=== PATIENT | female | born 1985 | race Caucasian/White ===

== ENCOUNTER 2025-02-24 11:52 | Emergency (ER) | payer OTHER, SELFPAY ==
[2025-02-24] VITALS (24 sets, daily range): BP systolic 155–219; BP diastolic 85–121; PULSE 49–62; RESP 6–19; TEMP 36.3–36.5; O2SAT 98–100
--- NOTE | ~2025-02-24 | CT_ITS ---
EXAMINATION: CT brain wo con DATE: 02/24/2025 12:14 INDICATION: Hypertension with headache TECHNIQUE: Computed tomography (CT) of the head was performed without intravenous contrast. Sagittal and coronal reconstructions were performed. The mA was adjusted according to patient size. Iterative reconstruction technique was employed. The dose-length product was 681.00 mGy-cm. COMPARISON: None FINDINGS: No acute intracranial hemorrhage, acute infarction or abnormal extra axial fluid collection. Ventricles are normal and symmetric. There is asymmetric increased fluid in the sella with the pituitary deviated towards the left which suggests a possible cystic intrasellar lesion. No masses identified.. Mild mucosal thickening the right maxillary sinus. The orbits, paranasal sinuses and mastoid air cells are normal. IMPRESSION: 1. No acute intracranial process. 2. Suggestion of a possible cystic lesion in the right side of the sella with displacement of a catheter into the left side of the sella. Consider further evaluation with pre and postcontrast pituitary MRI. Reviewed, dictated and finalized at location A. IMPRESSION: 1. No acute intracranial process. 2. Suggestion of a possible cystic lesion in the right side of the sella with d isplacement of a catheter into the left side of the sella. Consider further rhea luation with pre and postcontrast pituitary MRI.
--- NOTE | 2025-02-24 11:54 | ECG_ITS ---
Test Date: 2025-02-24 12:18:45 Measurements Intervals Bypro Rate: 51 P: 53 LA: 177 QRS: 14 QRSD: 95 T: 137 QT: 463 QTc: 428 Interpretive Statements SINUS BRADYCARDIA ST DEVIATION AND MODERATE T-WAVE ABNORMALITY, CONSIDER LATERAL ISCHEMIA [-0.1+ mV T-WAVE IN I/aVL/V5/V6] ABNORMAL ECG No previous ECG available for comparison Electronically Signed On 02-24-2025 12:38:11 CDT by Jono Dozier M.D.
--- OUTSIDE RECORDS SUMMARY | 2025-02-24 12:03 | XMS_ITS | Clinical Summary ---
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 10 Tab 12/24/2016 Active Phentermine HCl (ADIPEX-P) 37.5 MG Capsule Take by mouth. Active methylPREDNISol one (MEDROL DOSPACK) 4 MG Tablet Therapy Pack See product package insert for dosing schedule 21 Tab 01/12/2017 Active ibuprofen (MOTRIN) 600 MG Tablet Take 1 Tab by mouth every 6 hours as needed for Pain. 20 Tab 01/12/2017 Active lisinopril (PRINIVIL, ZESTRIL) 20 MG Tablet Take 20 mg by mouth daily. Active Social History Tobacco Use Types Packs/Day Years Used Date Smoking Tobacco: Every Day Cigarettes Smokeless Tobacco: Never Tobacco Cessation:Ready to Q uit: Not Asked; Counseling Given: Not Answered Alcohol Use Standard Drinks/Week Comments Yes 0 (1 standard drink = 0.6 oz pur e alcohol) seldom Comments No Sex and Gender Information Value Date Recorded Sex Assigned at Not on file Legal Sex Female 10:55 PM CDT Gender Identity Not on file Sexual Orientation Not on file Last Filed Vital Signs Vital Sign Reading Time Taken Comments Blood Pressure 184/106 06/04/2022 2:00 PM BACK GRINDER Pulse 84 06/04/2022 2:03 PM BACK GRINDER Temperature 37.4 C (99.4 F) 06/04/2022 11:30 AM BACK GRINDER Respiratory Rate 20 06/04/2022 11:30 AM BACK GRINDER Oxygen Saturation 98% 06/04/2022 2:03 PM BACK GRINDER Inhaled Oxygen Concentration - - Weight 117.9 kg (260 lb) 06/04/2022 11:30 AM BACK GRINDER Height 177.8 cm (5' 10) 06/04/2022 11:30 AM BACK GRINDER Body Mass Index 37.31 06/04/2022 11:30 AM BACK GRINDER Plan of Treatment Health Maintenance Due Date Last Done Comments Hepatitis C Virus (HCV) Screening 1987 TdaP Immunization 1987 Pap Smear 2008 Human Papillomavirus (HPV) Immunization (1 - 3-dose SCDM series) 2014 Cervical Cancer Screening (CCS) 2017 HPV/Cotest 2017 Influenza Immunization (#1) 2025 04/13/2016 SARS-COV-2 Immunization ( season) 2025 11/29/2020, 11/08/2020 Respiratory Syncytial Virus (RSV) Immunization (Adult) (1 - 1-dose 75+ series) 2062 DTaP/Tdap/Td Immunization Discontinued 1991, 12/25/1988, 1987, Additional history exists Hepatitis B Immunization Completed 997, 11/04/1996, 09/30/1996 Meningococcal Immunization (ACWY) Aged Out No longer eligible based on patient's age to complete this topic Pneumococcal Immunization Combined Aged Out No longer eligible based on patient's age to complete this topic Rotavirus Immunization Aged Out No lo nger eligible based on patient's age to complete this topic 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
--- OUTSIDE RECORDS SUMMARY | 2025-02-24 12:03 | XMS_ITS | Clinical Summary ---
Author Organization [facility] Address [address] [place] [address] Care Team Providers Care Body Care Manager Name Role Phone No, Physician Primary Care Provider [phone] Allergies Active Allergy Reactions Criticality Noted Date Comments Fluoxetine Hives Medium 01/19/2016 Medications ondansetron (ZOFRAN) 4 mg tablet Take 1 tablet (4 mg total) by mouth every 6 (six) hours 12 tablet 11/15/19 22 Active loperamide (IMODIUM) 2 mg capsule Take 1 capsule (2 mg total) by mouth 4 (four) times a day as needed for diarrhea 12 capsule 11/15/19 22 Active ibuprofen (ADVIL,MOTRIN ) 800 mg tablet Take 1 tablet (800 mg total) by mouth 3 (three) times a day 21 tablet 12/05/19 22 Active predniSONE (DELTASONE) 10 mg tablet Take 1 tablet (10 mg) by mouth as directed 3 p.o. daily for 5 days then 2 p.o. daily for 5 days then 1 p.o. daily for 5 days. Collaborating physician Jaspreet Sharma MD 30 tablet 07/18/19 23 Active traMADoL (ULTRAM) 50 mg tablet Take 1 tablet (50 mg total) by mouth every 6 (six) hours as needed for pain for up to 15 doses P.r.n. pain not relieved by prednisone alone. Take with food. Collaborating physician Jaspreet Sharma MD 15 tablet 07/18/19 23 Active oxyCODONE (ROXICODONE) 10 mg tabletIndicat ions:Pain Take 1 tablet (10 mg total) by mouth every 4 (four) hours as needed for pain 20 tablet 10/14/19 25 Active hydrALAZINE (APRESOLINE) 50 mg tabletIndicat ions:hyperten obed Take 1 tablet (50 mg total) by mouth 3 (three) times a day 30 tablet 10/14/19 25 026 Active amLODIPine (NORVASC) 10 mg tabletIndicat ions:douglas clay Take 1 tablet (10 mg total) by mouth daily 60 tablet 12/01/19 25 026 Active irbesartan (AVAPRO) 75 mg tablet Take 2 tablets (150 mg total) by mouth nightly 60 tablet 12/01/19 25 026 Active atenoloL (TENORMIN) 50 mg tablet Take 1 tablet (50 mg total) by mouth daily 60 tablet 01/21/20 25 026 Active hydroCHLOROth iazide (HYDRODIURIL) 25 mg tablet Take 12.5 mg by mouth daily. 0 05/02/20 17 022 Discontinued metoprolol XL (TOPROL-XL) 50 mg 24 hr tablet Take 50 mg by mouth daily. 2 05/02/20 17 022 Discontinued lisinopril-hy droCHLOROthia zide (ZESTORETIC) 20-25 mg per tabletIndicat ions:douglas clay Take 1 tablet by mouth daily 30 tablet 10/04/19 21 022 Discontinued Active Problems Problem Noted Date Diagnosed Date Gouty arthritis of right foot 07/18/2022 Disorder of gallbladder 05/07/2012 Overview (09/12/2016): Gallbladder disease Nontraumatic retroperitoneal hematoma 03/12/2012 Encounters Date Type Department Care Team Description 01/19/2025 11:25 PM CDT - 01/20/2025 2:04 AM CDT Emergency [facility] Emergency Department [address] [place] [address] Killian Baird MD Uncontrolled hypertension (Primary Dx) Discharge Disposition: Discharge to home or self care 11/30/2024 11:36 AM CDT - 11/30/2024 5:58 PM CDT Emergency [facility] Emergency Department [address] [place] [address] Christian Lofton MD Burnside, David W., MD Hypertensive urgency (Primary Dx) Discharge Disposition: Discharge to home or self care from Last 3 Months Surgical History Surgery Date Site/Laterality Comments LAPAROSCOPIC CHOLECYSTECTOMY 2012 laparoscopic cholecystectomy Medical History Medical History Date Comments Hypertension Hypertension Hx Other Medical Hematomas on madan th kidneys Morbid obesity (HCC) Family History Medical History Relation Name Comments Cancer Other 1 Family history of Cancer; Heart disease Other 2 Family history of Heart disease; Relation Name Status Comments Other 1 Other 2 Social History Tobacco Use Types Packs/Day Years Used Date Smoking Tobacco: Every Day Cigarettes Smokeless Tobacco: Never Alcohol Use Standard Drinks/Week Comments No 0 (1 standard drink = 0.6 oz pur e alcohol) Personal Safety Answer Date Recorded Have you ever been in or are you currently in a harmful physical or emotional relationship or is someone making you feel afraid or unsafe? Denies 01/19/2025 Comments No Sex and Gender Information Value Date Recorded Sex Assigned at Not on file Legal Sex Female 2:41 AM [employer] Gender Identity Not on file Sexual Orientation Not on file Obstetrics History Last Filed Vital Signs Vital Sign Reading Time Taken Comments Blood Pressure 178/88 01/20/2025 1:45 AM CDT Pulse 84 01/20/2025 2:00 AM CDT Temperature 36.9 C (98.5 F) 01/19/2025 9:25 PM CDT Respiratory Rate 16 01/20/2025 2:00 AM CDT Oxygen Saturation 97% 01/20/2025 2:00 AM CDT Inhaled Oxygen Concentration - - Weight 85.7 kg (189 lb) 01/19/2025 9:25 PM CDT Height 177.8 cm (5' 10) 10/13/2024 7:26 AM CDT Body Mass Index 27.12 10/13/2024 7:26 AM CDT Plan of Treatment Health Maintenance Due Date Last Done Comments Cervical Cancer Screening 1987 Depression Screening 1987 Hepatitis C Screening 1987 DTaP/Tdap/Td Vaccine (6 - Tdap) 1998 08/18/1991, 12/25/1988, 1987, Additional history exists Varicella Vaccines (1 of 2 - 13+ 2-dose series) 2000 Regular Well Visit/Exam 18-64 2005 Pneumococcal vaccine <65 (1 of 2 - PCV) 2006 HPV Vaccines (1 - 3-dose SCD M series) 2014 Influenza Vaccine (#1) 2025 04/13/2016 Hepatitis B Screening Completed 03/10/1997 , 11/04/1996, 09/30/1996 Procedures Procedure Name Priority Date/Time Associated Diagnosis Comments TROPONIN T HIGH-SENSITIVITY 4-HR Timed 01/20/2025 1:14 AM CDT TROPONIN T HIGH-SENSITIVITY 2-HOUR Timed 01/19/2025 11:39 PM CDT THYROID FUNCTION CASCADE Routine 01/19/2025 11:35 PM CDT XR CHEST PA LATERAL 2 VIEWS ED 01/19/2025 10:14 PM CDT ECG 12-LEAD STAT 01/19/2025 9:32 PM CDT EGFR STAT 01/19/2025 9:29 PM CDT DIFFERENTIAL AUTO STAT 01/19/2025 9:2 9 PM CDT PRO B-TYPE NATRIURETIC PEPTIDE STAT 01/19/2025 9:29 PM CDT TROPONIN T HIGH-SENSITIVITY SERIES (BASELINE, 2HR, 4HR, 6HR) STAT 01/19/2025 9:29 PM CDT CBC WITH AUTO DIFFERENTIAL STAT 01/19/2025 9:29 PM CDT COMPREHENSIVE METABOLIC PANEL STAT 01/19/2025 9:[address] HEAD WO CONTRAST ED 11/30/2024 5 :19 PM CDT TROPONIN T HIGH-SENSITIVITY 4-HR Timed 11/30/2024 4:41 PM CDT ECG 12-LEAD Routine 11/30/2024 3:22 PM CDT TROPONIN T HIGH-SENSITIVITY 2-HOUR Timed 11/30/2024 1:22 PM CDT URINALYSIS AND REFLEX TO MICROSCOPIC AND CULTURE STAT 11/30/2024 1:22 PM CDT ECG 12-LEAD Routine 11/30/2024 11:50 AM CDT EGFR STAT 11/30/2024 11:50 AM CDT DIFFERENTIAL AUTO STAT 11/30/2024 11: 50 AM CDT HCG, BLOOD, QUANTITATIVE STAT 11/30/2024 11:50 AM CDT TROPONIN T HIGH-SENSITIVITY SERIES (BASELINE, 2HR, 4HR, 6HR) Routine 11/30/2024 11:50 AM CDT MAGNESIUM Routine 11/30/2024 11:50 AM CDT COMPREHENSIVE METABOLIC PANEL STAT 11/30/2024 11:50 AM CDT CBC WITH AUTO DIFFERENTIAL STAT 11/30/2024 11:50 AM CDT from Last 3 Months Results * (ABNORMAL) Troponin T high-sensitivity 4-hour (01/20/2025 1:14 AM CDT) Trop T hs 21(H) <=14 ng/L [facility] ([place]) Comment: Interpretive Data For further hscTnT resources including the diagnostic algorithm and an aid in interpretation, copy and paste this link: https://nrl.testcatalog.org/show/hsTrop Current Interpretive Data last revised 2020. Trop T hs delta 3 ng/L [facility] ([facility]) Trop T hs interp Insignificant [facility] ([place]) Blood 01/20/2025 1:14 AM CDT 01/20/2025 1:20 AM CDT us Jaspreet Sharma MD LAB BLOOD ORDERABLES Final Result [facility] ([place]) 1 [facility] Department [place] [address] * (ABNORMAL) Troponin T high-sensitivity 2-hour (01/19/2025 11:39 PM CDT) Trop T hs 19(H) <=14 ng/L [facility] ([place]) Comment: Interpretive Data For further hscTnT resources including the diagnostic algorithm and an aid in interpretation, copy and paste this link: https://nrl.testcatalog.org/show/hsTrop Current Interpretive Data last revised 2020. Trop T hs delta 1 ng/L [facility] ([facility]) Trop T hs interp Insignificant [facility] ([place]) Blood 01/19/2025 11:3 9 PM CDT 01/19/2025 11:45 PM CDT us Jaspreet Sharma MD LAB BLOOD ORDERABLES Final Result Performing Organization Address [facility]/ZIP Co de Phone Number [facility] ([place]) 1 [facility] Department [place] [address] * Thyroid Function Assumption (01/19/2025 11:35 PM CDT) TSH 1.71 0.30 - 4.20 mcIUnit/mL [facility] ([place]) Blood 01/19/2025 11:3 5 PM CDT 01/20/2025 12:23 AM CDT us Killian Baird MD LAB BLOOD ORDERABLES Final Res ult [facility] ([place]) 1 [facility] [place] [address] * XR Chest PA Lateral 2 Views (If patient hemodynamically stable and ambulatory) (01/19/2025 10:14 PMCDT) Anatomical Region Laterality Modality Body, Chest N/A Computed Radiogr aphy 01/19/2025 10:1 6 PM CDT Narrative 01/19/2025 10:20 PM CDT EXAM DESCRIPTION: XR CHEST PA LATERAL 2 VIEWS REASON FOR STUDY: Shortness of breath Patient complained of blood pressure readings in 200's at home. Denies chest pain and sob Smoker TECHNIQUE: 2 radiographic view(s) of the chest. COMPARISON: 04/02/2017 FINDINGS: LUNGS: The lungs are clear. No focal pulmonary parenchymal consolidation, pleural effusion, or pneumothorax. HEART/MEDIASTINUM: Cardiac silhouette normal in size. Mediastinal and hilar contours appear normal. LINES/TUBES: None. BONES: No acute osseous abnormality. IMPRESSION: No acute cardiopulmonary abnormality. THIS IS AN ELECTRONICALLY VERIFIED FINAL REPORT 01/19/2025 10:20 PM - Electronically signed by Shereen Shipman M.D. AT: AT Report ID: [id number] Reading Location: [id number] Procedure Note Shereen Shipman MD - 01/19/2025 EXAM DESCRIPTION: XR CHEST PA LATERAL 2 VIEWS REASON FOR STUDY: Shortness of breath Patient complained of blood pressure readings in 200's at home. Denieschest pain and sob Smoker TECHNIQUE: 2 radiographic view(s) of the chest. COMPARISON: 04/02/2017 FINDINGS: LUNGS: The lungs are clear. No focal pulmonary parenchymalconsolidation, pleural effusion, or pneumothorax. HEART/MEDIASTINUM: Cardiac silhouette normal in size. Mediastinal andhilar contours appear normal. LINES/TUBES: None. BONES: No acute osseous abnormality. IMPRESSION: No acute cardiopulmonary abnormality. THIS IS AN ELECTRONICALLY VERIFIED FINAL REPORT 01/19/2025 10:20 PM - Electronically signed by Shereen Shipman M.D. AT: AT Report ID: [id number] Reading Location: [id number] Killian Baird MD IMG XR PROCEDURES Final Result * ECG 12 lead (01/19/2025 9:32 PM CDT) 01/19/2025 9:32 PM CDT Narrative [facility] - 01/20/2025 1:53 PM CDT Vent Rate: 111 bpm RR Interval: 538 msec OK Interval: 120 msec QRS Duration: 94 msec QT Interval: 333 msec QTC Interval: 399 msec P-R-T Ararat: 62 - 31 - 127 degrees IMPRESSION: SINUS TACHYCARDIA WITH OCCASIONAL VENTRICULAR PREMATURE COMPLEXES ST DEVIATION AND MODERATE T-WAVE ABNORMALITY, CONSIDER LATERAL ISCHEMIA [-0.1+ mV T WAVE IN I/aVL/V5/V6] ABNORMAL ECG Compared to prior EKG, heart rate has increased PVCs are new Electronically Signed By: Lencho Jade MD Killian Baird MD ECG ORDERABLES Final Result Performing Organization Address [facility]/ZIP Co de Phone Number [facility] * (ABNORMAL) Troponin T high-sensitivity series (baseline, 2hr, 4hr, 6hr) (01/19/2025 9:29 PM CDT) Trop T hs 18(H) <=14 ng/L [facility] ([place]) Comment: Interpretive Data For further hscTnT resources including the diagnostic algorithm and an aid in interpretation, copy and paste this link: https://nrl.testcatalog.org/show/hsTrop Current Interpretive Data last revised 2020. Blood 01/19/2025 9:29 PM CDT 01/19/2025 9:37 PM CDT Killian Baird MD LAB BLOOD ORDERABLES Final Res ult [facility] ([place]) 1 [facility] Department [place] [address] * (ABNORMAL) eGFR (01/19/2025 9:29 PM CDT) eGFR 56(L) >=60 mL/min/1. 73 m2 Comment: Interpretive Data Reference Interval Normal >/= 90 mL/min/1.73m2 Mildly decreased* 60 - 89 mL/min/1.73m2 Mildly to moderately decreased 45 - 59 mL/min/1.73m2 Moderately to severely decreased 30 - 44 mL/min/1.73m2 Severely decreased 15 - 29 mL/min/1.73m2 Kidney Failure < 15 mL/min/1.73m2 *Relative to young adult level Estimated glomerular filtration rate is determined by the 2020 CKD-EPI equation recommended by the National Kidney Foundation (A Unifying Approach to GFR Estimation: Recommendations of the NKF-ASK Task Force on Reassessing the Inclusion of Race in Diagnosing Kidney Disease, JASN 2020). The CKD-EPI equation should not be used for patients with unstable renal function and has not been validated in children and those over 70. Current interpretive data was last reviewed 2021. Blood 01/19/2025 9:29 PM CDT 01/19/2025 9:37 PM CDT Killian Baird MD LAB BLOOD ORDERABLES Final Res ult [facility] ([place] 1 [facility] Department of Laboratories [place], [place] [id number] * (ABNORMAL) Differential, auto (01/19/2025 9:29 PM CDT) Neutrophil abs 9.85(H) 1.50 - 6.50 K/cumm Imm gran abs 0.06 0.00 - 0.10 K/cumm [facility] ([facility]) Lymphocyte abs 1.23 0.80 - 3.30 K/cumm [facility] ([place]) Monocyte abs 0.59 0.20 - 0.80 K/cumm [facility] ([place]) Eosinophil abs 0.16 0.00 - 0.50 K/cumm [facility] ([place]) Basophil abs 0.04 0.00 - 0.10 K/cumm [facility] ([place]) Neutrophil pct 82.7 % [facility] ([place]) Comment: Interpretive Data Percent cell count reference ranges are not reported, since discordance with absolute values may lead to misinterpretation of CBC data. Current Interpretive Data was last revised on 2017. Imm gran pct 0.5 % [facility] ([place]) Comment: Interpretive Data Percent cell count reference ranges are not reported, since discordance with absolute values may lead to misinterpretation of CBC data. Current Interpretive Data was last revised on 2017. Lymphocyte pct 10.3 % [facility] ([place]) Comment: Interpretive Data Percent cell count reference ranges are not reported, since discordance with absolute values may lead to misinterpretation of CBC data. Current Interpretive Data was last revised on 2017. Monocyte pct 4.9 % [facility] ([place]) Comment: Interpretive Data Percent cell count reference ranges are not reported, since discordance with absolute values may lead to misinterpretation of CBC data. Current Interpretive Data was last revised on 2017. Eosinophil pct 1.3 % [facility] ([facility]) Comment: Interpretive Data Percent cell count reference ranges are not reported, since discordance with absolute values may lead to misinterpretation of CBC data. Current Interpretive Data was last revised on 2017. Basophil pct 0.3 % [facility] ([place]) Comment: Interpretive Data Percent cell count reference ranges are not reported, since discordance with absolute values may lead to misinterpretation of CBC data. Current Interpretive Data was last revised on 2017. Blood 01/19/2025 9:29 PM CDT 01/19/2025 9:37 PM CDT us Killian Baird MD LAB BLOOD ORDERABLES Final Res ult [facility] ([place]) 1 [facility] Department [place] [address] * (ABNORMAL) Pro B-type natriuretic peptide (01/19/2025 9:29 PM CDT) NT-proBNP 754(H) <=300 pg/mL [facility] ([place]) Comment: Interpretive Comments: A. Dyspnea in Acute Care Setting All Ages: < 300 pg/ml, acute heart failure unlikely. < 50 yrs: 300 - 450 pg/ml, further investigation warranted. > 450 pg/ml, acute heart failure likely. 50 - 74 yrs: 300 - 900 pg/ml, further investigation warranted. > 900 pg/ml, acute heart failure likely . > or = 75 yrs: 450 - 1800 pg/ml, further investigation warranted. > 1800 pg/ml, acute heart failure likely. B. Non-acute Setting < 75 yrs < 125 pg/ml, rules out heart failure. > or = 125 pg/ml, further investigation warranted. > or = 75 yrs < 450 pg/ml, rules out heart failure. > or = 450 pg/ml, further investigation warranted. - Knowledge of each individual patient's NT-proBNP range may be more useful than using similar cut-points for every patient. Please note that marked elevations in NT-proBNP levels may be observed in state other than Left Ventricular Congestive Failure, including: acute coronary syndromes, right heart strain/failure (including pulmonary embolism and cor pulmonale), critical illness, renal failure, as well as advanced age. - References: 1. Joselito GRIFFITH et.al. Eur Heart J. 2006:27:330-337. 2. Ruth RW, Chet ESTRELLA. J. AM Alina Cardiol: Cardiovasc Imag. 2009;2: 216- 225. Interpretive Data Last Revised Date: 2018. Blood 01/19/2025 9:29 PM CDT 01/19/2025 9:37 PM CDT us Killian Baird MD LAB BLOOD ORDERABLES Final Res ult [facility] ([place]) 1 [facility] Department [place] [address] * (ABNORMAL) CBC with auto differential (01/19/2025 9:29 PM CDT) WBC 11.93(H) 3.80 - 9.90 K/cumm Hgb 16.4(H) 11.9 - 15.5 g/dL [facility] ([place]) Hct 47.0(H) 35.6 - 45.5 % [facility] ([place]) Plt 145(L) 150 - 400 K/cumm [facility] ([place]) MPV 10.6 9.1 - 12.3 fL [facility] ([place]) RBC 5.03 3.90 - 5.20 M/cumm [facility] ([place]) MCV 93.4 81.3 - 96.4 fL [facility] ([place]) MCH 32.6 27.1 - 33.3 pg [facility] ([place]) MCHC 34.9 32.3 - 35.7 g/dL [facility] ([place]) RDW CV 13.0 11.1 - 14.9 % [facility] ([place]) RDW SD 44.4 35.7 - 48.1 fL [facility] ([place]) NRBC abs 0.03(H) 0.00 - 0.01 K/cumm [facility] Blood 01/19/2025 9:29 PM CDT 01/19/2025 9:37 PM CDT us Killian Baird MD LAB BLOOD ORDERABLES Final Res ult [facility] ([place]) 1 [facility] Department [place] [address] * (ABNORMAL) Comprehensive metabolic panel (01/19/2025 9:29 PM CDT) Sodium 142 135 - 145 mmol/L [facility] Potassium, pl 4.0 3.3 - 4.9 mmol/L [facility] Chloride 103 97 - 110 mmol/L [facility] CO2 20(L) 22 - 32 mmol/L [facility] ([place]) Anion gap 19(H) 2 - 15 mmol/L [facility] BUN 20 6 - 25 mg/dL [facility] Creatinine 1.26(H) 0.60 - 1.10 mg/dL [facility] ([place]) Glucose 90 70 - 199 mg/dL [facility] ([place]) Comment: Interpretive Data Fasting glucose >/= 126 mg/dl is diagnostic for diabetes. Fasting is defined as no caloric intake for at least 8 hours. Fasting glucose between 100 mg/dl to 125 mg/dl is diagnostic of prediabetes. In a patient with classic symptoms of hyperglycemia or hyperglycemic crisis, a random glucose >/= 200 mg/dl is diagnostic for diabetes. In the absence of unequivocal hyperglycemia, results should be confirmed by repeat testing. The classification and Diagnosis of Diabetes Diabetes Care 2021; 46: S19-S40. Current interpretive data was last revised 2022. Calcium 10.1 8.5 - 10.3 mg/dL [facility] ([place]) Bilirubin, total 0.6 0.1 - 1.2 mg/dL [facility] ([place]) Protein, pl 7.6 6.5 - 8.5 g/dL [facility] ([place]) Albumin 4.8 3.5 - 5.0 g/dL [facility] ([place]) Alk phos 73 40 - 130 Units/L [facility] ([place]) ALT 37 7 - 45 Units/L [facility] ([place]) AST 35 10 - 45 Units/L [facility] ([place]) Comment:Hemolysis present. R esults may be affected. Blood 01/19/2025 9:29 PM CDT 01/19/2025 9:37 PM CDT us Killian Baird MD LAB BLOOD ORDERABLES Final Res ult [facility] ([place]) 1 [facility] Department [place] [address] * CT Head WO Contrast (11/30/2024 5:19 PM CDT) Anatomical Region Laterality Modality Head and Neck N/A Computed Tomogra phy 11/30/2024 5:27 PM CDT Narrative 11/30/2024 5:32 PM CDT EXAM DESCRIPTION: CT HEAD WO CONTRAST REASON FOR STUDY: Headache, no red flags Pt to ED via POV. Per Pt she had her BP taken today for a physical when they got a reading of 240/100. Pt denies HTN Hx. Pt reports mild headache. TECHNIQUE: Axial images acquired through the brain without intravenous contrast. Images stored on PACS. Automated exposure control was used as a dose optimization technique for this examination. COMPARISON: None FINDINGS: BRAIN: No hemorrhage, edema or mass effect. No recent infarct. Normal white matter. EXTRA-AXIAL SPACES: No fluid collections. No masses. CALVARIUM: No fracture. SINUSES/MASTOIDS: Polyp or retention cyst right maxillary sinus. ORBITS: No significant abnormality. OTHER: No other significant abnormality. IMPRESSION: No acute intracranial findings. THIS IS AN ELECTRONICALLY VERIFIED FINAL REPORT 11/30/2024 5:32 PM - Electronically signed by Johnathan Gonzales M.D. KT: NOLAN Report ID: [id number] Reading Location: [id number] Procedure Note Johnathan Gonzales MD - 11/30/2024 EXAM DESCRIPTION: CT HEAD WO CONTRAST REASON FOR STUDY: Headache, no red flags Pt to ED via POV. Per Pt she had her BP taken today for a physical whenthey got a reading of 240/100. Pt denies HTN Hx. Pt reports mild headache. TECHNIQUE: Axial images acquired through the brain without intravenous contrast. Images stored on PACS. Automated exposure control was used asa dose optimization technique for this examination. COMPARISON: None FINDINGS: BRAIN: No hemorrhage, edema or mass effect. No recent infarct. Normal white matter. EXTRA-AXIAL SPACES: No fluid collections. No masses. CALVARIUM: No fracture. SINUSES/MASTOIDS: Polyp or retention cyst right maxillary sinus. ORBITS: No significant abnormality. OTHER: No other significant abnormality. IMPRESSION: No acute intracranial findings. THIS IS AN ELECTRONICALLY VERIFIED FINAL REPORT 11/30/2024 5:32 PM - Electronically signed by Johnathan Gonzales M.D. KT: NOLAN Report ID: [id number] Reading Location: [id number] Jaspreet Sharma MD IM CT PROCEDURES Final Res ult * (ABNORMAL) Troponin T high-sensitivity 4-hour (11/30/2024 4:41 PM CDT) Trop T hs 30(H) <=14 ng/L Comment: Interpretive Data For further hscTnT resources including the diagnostic algorithm and an aid in interpretation, copy and paste this link: https://nrl.Syncurity.org/show/hsTrop Current Interpretive Data last revised 2020. Trop T hs delta 1 ng/L [facility] ([facility]) Trop T hs interp Insignificant [facility] ([place]) Blood 11/30/2024 4:41 PM CDT 11/30/2024 4:43 PM CDT Christian Lofton MD LAB BLOOD ORDERABLES Final R esult Performing Organization Address [facility] Co de Phone Number [facility] ([place]) 1 [facility] [place] [address] * ECG 12 lead (11/30/2024 3:22 PM CDT) 11/30/2024 3:22 PM CDT Narrative [facility] 12/01/2024 8:07 AM CDT Vent Rate: 68 bpm RR Interval: 876 msec OK Interval: 149 msec QRS Duration: 101 msec QT Interval: 418 msec QTC Interval: 435 msec P-R-T Ararat: 38 - -3 - 161 degrees IMPRESSION: SINUS RHYTHM POSSIBLE LEFT ATRIAL ENLARGEMENT [-0.1mV P-WAVE IN V1/V2] LEFT VENTRICULAR HYPERTROPHY AND ST-T CHANGE [VOLTAGE CRITERIA PLUS ST/T ABNORMALITY] ABNORMAL ECG No change compared to prior EKG Electronically Signed By: Reji Caballero MD [facility] Jaspreet Sharma MD ECG ORDERABLES Final Resul t Performing Organization Address [facility] Co de Phone Number [facility] * (ABNORMAL) Troponin T high-sensitivity 2-hour (11/30/2024 1:22 PM CDT) Trop T hs 30(H) <=14 ng/L Comment: Interpretive Data For further hscTnT resources including the diagnostic algorithm and an aid in interpretation, copy and paste this link: https://nrl.[employer] [email or web address]/show/hsTrop Current Interpretive Data last revised 2020. Trop T hs delta 1 ng/L [facility] ([facility]) Trop T hs interp Insignificant [facility] ([place]) Blood 11/30/2024 1:22 PM CDT 11/30/2024 1:28 PM CDT Christian Lofton MD LAB BLOOD ORDERABLES Final R esult [facility] ([place]) 1 [facility] Department [place] [address] * Urinalysis reflex to microscopic and culture Urine (11/30/2024 1:22 PM CDT) Color, ur Straw Yellow Clarity, ur Clear Clear [facility] ([place]) Specific gravity, ur 1.008 1.003 - 1.030 [facility] ([place]) pH, urine 5.5 [facility] ([place]) Comment: Interpretive Data U rine pH is affected by diet, medications, systemic acid-base disturbances, and renal tubular function. pH may affect urinary stone formation. For example, urine pH below 6.0 may help reduce the tendency for calcium phosphate stones and pH greater than 6.0 may reduce the tendency for uric acid stone formation. Source: [facility] Laboratories Current Interpretive Data was last revised on 2017 Protein, ur ql Negative Negative [facility] ([place]) Glucose, ur ql Negative Negative [facility] ([place]) Ketones, ur Negative Negative [facility] ([place]) Bilirubin, ur Negative Negative [facility] ([place]) Blood, ur Negative Negative [facility] ([place]) Urobilinogen, ur <2.0 <2.0 mg/dL [facility] ([place]) Nitrite, ur Negative Negative [facility] ([place]) Leukocyte esterase, ur Negative Negative [facility] ([place]) UA reflex comment Reflex conditions for microscopic UA and culture not met. [facility] ([place]) Urine 11/30/2024 1:22 PM CDT 11/30/2024 1:28 PM CDT Christian Lofton MD LAB MICROBIOLOGY - GENERAL O RDERABLES Final Result Performing Organization Address City/[facility] Co de Phone Number IMAN RANGEL ([place]) 1 [facility] [place] [address] * ECG 12 lead (11/30/2024 11:50 AM CDT) 11/30/2024 11:5 0 AM CDT Narrative [facility] - 11/30/2024 2:26 PM CDT Vent Rate: 93 bpm RR Interval: 645 msec [place] Interval: 143 msec QRS Duration: 98 msec QT Interval: 373 msec QTC Interval: 423 msec P-R-T [place]: 34 - -11 - 138 degrees IMPRESSION: SINUS RHYTHM POSSIBLE LEFT ATRIAL ENLARGEMENT [-0.1mV P-WAVE IN V1/V2] LEFT VENTRICULAR HYPERTROPHY AND ST-T CHANGE [VOLTAGE CRITERIA PLUS ST/T ABNORMALITY] ABNORMAL ECG Compared to prior EKG, lateral T-wave inversions are new Electronically Signed By: Lencho Jade MD Christian Lofton MD ECG ORDERABLES Final Result Performing Organization Address [facility] Co de Phone Number [facility] [employer] [facility] * (ABNORMAL) Troponin T high-sensitivity series (baseline, 2hr, 4hr, 6hr) (11/30/2024 11:50 AM CDT) Trop T hs 29(H) <=14 ng/L Comment: Interpretive Data For further hscTnT resources including the diagnostic algorithm and an aid in interpretation, copy and paste this link: https://nrl.testcatalog.org/show/hsTrop Current Interpretive Data last revised 2020. Blood 11/30/2024 11:5 0 AM CDT 11/30/2024 11:53 AM CDT Christian Lofton MD LAB BLOOD ORDERABLES Final R esult Performing Organization Address City/[facility] Co de Phone Number IMAN RANGEL ([place]IER) 1 [facility] Department [place] [address] * eGFR (11/30/2024 11:50 AM CDT) eGFR 70 >=60 mL/min/1. 73 m2 Comment: Interpretive Data Reference Interval Normal >/= 90 mL/min/1.73m2 Mildly decreased* 60 - 89 mL/min/1.73m2 Mildly to moderately decreased 45 - 59 mL/min/1.73m2 Moderately to severely decreased 30 - 44 mL/min/1.73m2 Severely decreased 15 - 29 mL/min/1.73m2 Kidney Failure < 15 mL/min/1.73m2 *Relative to young adult level Estimated glomerular filtration rate is determined by the 2020 CKD-EPI equation recommended by the National Kidney Foundation (A Unifying Approach to GFR Estimation: Recommendations of the NKF-ASK Task Force on Reassessing the Inclusion of Race in Diagnosing Kidney Disease, JASN 2020). The CKD-EPI equation should not be used for patients with unstable renal function and has not been validated in children and those over 70. Current interpretive data was last reviewed 2021. Blood 11/30/2024 11:5 0 AM CDT 11/30/2024 11:53 AM CDT us Christian Lofton MD LAB BLOOD ORDERABLES Final R esult [facility] ([place]) 1 [facility] Department [place] [address] * (ABNORMAL) Differential, auto (11/30/2024 11:50 AM CDT) Neutrophil abs 6.51(H) 1.50 - 6.50 K/cumm Imm gran abs 0.05 0.00 - 0.10 K/cumm [facility] ([place]) Lymphocyte abs 1.14 0.80 - 3.30 K/cumm [facility] ([place]) Monocyte abs 0.41 0.20 - 0.80 K/cumm [facility] ([place]) Eosinophil abs 0.10 0.00 - 0.50 K/cumm [facility] ([place]) Basophil abs 0.03 0.00 - 0.10 K/cumm [facility] ([place]) Neutrophil pct 79.0 % [facility] ([place]) Comment: Interpretive Data Percent cell count reference ranges are not reported, since discordance with absolute values may lead to misinterpretation of CBC data. Current Interpretive Data was last revised on 2017. Imm gran pct 0.6 % [facility] ([place]) Comment: Interpretive Data Percent cell count reference ranges are not reported, since discordance with absolute values may lead to misinterpretation of CBC data. Current Interpretive Data was last revised on 2017. Lymphocyte pct 13.8 % [facility] ([place]) Comment: Interpretive Data Percent cell count reference ranges are not reported, since discordance with absolute values may lead to misinterpretation of CBC data. Current Interpretive Data was last revised on 2017. Monocyte pct 5.0 % [facility] ([place]) Comment: Interpretive Data Percent cell count reference ranges are not reported, since discordance with absolute values may lead to misinterpretation of CBC data. Current Interpretive Data was last revised on 2017. Eosinophil pct 1.2 % [facility] ([place]) Comment: Interpretive Data Percent cell count reference ranges are not reported, since discordance with absolute values may lead to misinterpretation of CBC data. Current Interpretive Data was last revised on 2017. Basophil pct 0.4 % [facility] ([place]) Comment: Interpretive Data Percent cell count reference ranges are not reported, since discordance with absolute values may lead to misinterpretation of CBC data. Current Interpretive Data was last revised on 2017. Blood 11/30/2024 11:5 0 AM CDT 11/30/2024 11:53 AM CDT us Christian Lofton MD LAB BLOOD ORDERABLES Final R esult IMAN RANGEL ([place]) 1 [facility] Department [place] [address] * (ABNORMAL) CBC with auto differential (11/30/2024 11:50 AM CDT) WBC 8.24 3.80 - 9.90 K/cumm Hgb 17.1(H) 11.9 - 15.5 g/dL [facility] ([place]) Hct 49.3(H) 35.6 - 45.5 % [facility] ([place]) Plt 127(L) 150 - 400 K/cumm [facility] ([place]) MPV 10.6 9.1 - 12.3 fL [facility] ([place]) RBC 5.39(H) 3.90 - 5.20 M/cumm [facility] ([place]) MCV 91.5 81.3 - 96.4 fL [facility] ([place]) MCH 31.7 27.1 - 33.3 pg [facility] ([place]) MCHC 34.7 32.3 - 35.7 g/dL [facility] ([place]) RDW CV 13.3 11.1 - 14.9 % [facility] ([place]) RDW SD 44.9 35.7 - 48.1 fL [facility] ([place]) NRBC abs 0.00 0.00 - 0.01 K/cumm [facility] ([place]) Blood 11/30/2024 11:5 0 AM CDT 11/30/2024 11:53 AM CDT us Christian Lofton MD LAB BLOOD ORDERABLES Final R esult [facility] ([place]) 1 [facility] Department [place] [address] * hCG, blood, quantitative (11/30/2024 11:50 AM CDT) hCG, quant <5.0 0.0 - 5.0 IUnits/L Comment: Interpretive Data Male: < 5 IU/L Non- premenopausal Female: <5 IU/L The Isaiah hCG Beta Quant assay procedure was used. Results from different manufacturers or methods may not be comparable. Serial testing should be performed using the same method. Interpretive Data was last revised on 2023 Blood 11/30/2024 11:5 0 AM CDT 11/30/2024 11:53 AM CDT us Christian Lofton MD LAB BLOOD ORDERABLES Final R esult IMAN RANGEL ([place]) 1 [facility] [place] [address] * Magnesium (11/30/2024 11:50 AM CDT) [facility] Magnesium 2.0 1.4 - 2.5 mg/dL Blood 11/30/2024 11:5 0 AM CDT 11/30/2024 11:53 AM CDT Christian Lofton MD LAB BLOOD ORDERABLES Final R [facility] Performing Organization Address City/[facility] Co de Phone Number IMAN RANGEL ([place]) 1 [place] [address] * (ABNORMAL) Comprehensive metabolic panel (11/30/2024 11:50 AM CDT) [facility] Sodium 137 135 - 145 mmol/L Potassium, pl 4.4 3.3 - 4.9 mmol/L [facility] ([place]) Chloride 103 97 - 110 mmol/L [facility] ([facility] CO2 19(L) 22 - 32 mmol/L [facility] ([facility]) Anion gap 15 2 - 15 mmol/L [facility] ([facility]) BUN 20 6 - 25 mg/dL [facility] ([facility]) Creatinine 1.05 0.60 - 1.10 mg/dL [facility] ([place]) Glucose 85 70 - 199 mg/dL [facility] ([facility]) Comment: Interpretive Data Fasting glucose >/= 126 mg/dl is diagnostic for diabetes. Fasting is defined as no caloric intake for at least 8 hours. Fasting glucose between 100 mg/dl to 125 mg/dl is diagnostic of prediabetes. In a patient with classic symptoms of hyperglycemia or hyperglycemic crisis, a random glucose >/= 200 mg/dl is diagnostic for diabetes. In the absence of unequivocal hyperglycemia, results should be confirmed by repeat testing. The classification and Diagnosis of Diabetes Diabetes Care 2021; 46: S19-S40. Current interpretive data was last revised 2022. Calcium 9.6 8.5 - 10.3 mg/dL [facility] ([place]) Bilirubin, total 0.8 0.1 - 1.2 mg/dL [facility] ([place]) Protein, pl 7.5 6.5 - 8.5 g/dL [facility] ([place]) Albumin 4.6 3.5 - 5.0 g/dL [facility] ([place]) Alk phos 83 40 - 130 Units/L [facility] ([place]) ALT 28 7 - 45 Units/L [facility] ([place]) AST 30 10 - 45 Units/L [facility] ([place]) Comment:Slightly Hemolyzed S pecimen Blood 11/30/2024 11:5 0 AM CDT 11/30/2024 11:53 AM CDT us Christian Lofton MD LAB BLOOD ORDERABLES Final R esult [facility] ([place]) 1 [facility] Department [place] [address] from Last [address] [facility] [employer] [facility] [employer] Care Teams Body Care Manager Relationship Specialty Start Date End Date No, Physician PCP - General 10/13/24
[2025-02-24 12:22] LABS: Alanine Aminotransferase 26 U/L (6-35); Albumin Level 4.8 g/dL (3.5-5.1); Alkaline Phosphatase 79 U/L (38-126); Anion Gap 9 mmol/L (4-12); Aspartate Amino Transferase 30 U/L (14-36); Bilirubin,Total 0.6 mg/dL (0.2-1.3); Blood Urea Nitrogen 18 mg/dL (7-17); Calcium 10.1 mg/dL (8.4-10.2); Carbon Dioxide 29 mmol/L (22-30); Chloride 107 mmol/L (98-107); Estimated CRCL calculation 63 ml/min; Estimated Glomerular Filt Rate 46; Glucose 84 mg/dL (65-110); Osmolality Calculated 300 mOsm/kg (285-295); Potassium 4.9 mmol/L (3.4-5.0); Sodium 145 mmol/L (137-145); Total Protein 8.3 g/dL (6.3-8.2)
--- OUTSIDE RECORDS SUMMARY | 2025-02-24 12:56 | XMS_ITS | Clinical Summary ---
Author Organization [facility] Address 1 [place] [address] Care Team Providers Care Sport Intern Name Role Phone No, Physician Primary Care Provider [phone] Allergies Active Allergy Reactions Criticality Noted Date [...] CDT - 01/20/2025 2:04 AM CDT Emergency [facility] Emergency Department [address] [place] [address] Killian Baird MD Uncontrolled hypertension (Primary Dx) Discharge Disposition: Discharge to home or self care 11/30/2024 11:36 AM CDT - 11/30/2024 5:58 PM CDT Emergency [facility] Emergency Department [address] [place] [address] Christian Lofton MD Burnside, David W., MD [...] on file Legal Sex Female 2:41 AM [employer]IFF [employer]AW H[employer] W[employer] Gender Identity Not on file Sexual Orientation [...] ORDERABLES Final Result IM[facility] RANGEL ([place]) 1 [facility] [place] [address] * (ABNORMAL) Troponin T high-sensitivity 2-hour (01/19/2025 [...] BLOOD ORDERABLES Final Result Performing Organization Address [facility]/ZIP Co de Phone Number IMAN RANGEL ([place]) 1 [facility] Department [place] [address] * Thyroid Function Mobile (01/19/2025 11:35 PM CDT) TSH 1.71 0.30 - 4.20 mcIUnit/mL [facility] RANGEL ([place]) Blood 01/19/2025 11:3 5 PM CDT 01/20/2025 12:23 AM CDT us Killian Baird MD LAB BLOOD ORDERABLES Final Res ult IMAN RANGEL ([place]) 1 [facility] [place] [address] * XR Chest PA Lateral 2 Views [...] Shereen Shipman M.D. AT: AT Report ID: [id number] Reading Location: [id number] Procedure Note Shereen Shipman MD - 01/19/2025 [...] Shereen Shipman M.D. AT: AT Report ID: [id number] Reading Location: [id number] Killian Baird MD IMG XR PROCEDURES Final Result * ECG 12 lead (01/19/2025 9:32 PM CDT) 01/19/2025 9:32 PM CDT Narrative [facility] - 01/20/2025 1:53 PM CDT Vent Rate: 111 bpm RR Interval: 538 msec [place] Interval: 120 msec QRS Duration: 94 msec QT Interval: 333 msec QTC Interval: 399 msec P-R-T [place]: 62 - 31 - 127 degrees IMPRESSION: SINUS TACHYCARDIA WITH OCCASIONAL VENTRICULAR PREMATURE COMPLEXES ST DEVIATION AND MODERATE T-WAVE ABNORMALITY, CONSIDER LATERAL ISCHEMIA [-0.1+ mV T WAVE IN I/aVL/V5/V6] ABNORMAL ECG Compared to prior EKG, heart rate has increased PVCs are new Electronically Signed By: Lencho Jade MD Killian Baird MD ECG ORDERABLES Final Result Performing Organization Address [facility]/ZIP Co de Phone Number [facility] * (ABNORMAL) Troponin T high-sensitivity series [...] Final Res ult IMAN RANGEL ([place]) 1 [facility] Department [place] [address] * (ABNORMAL) eGFR (01/19/2025 9:29 PM CDT) [...] MD LAB BLOOD ORDERABLES Final Res ult [facility] ([place]) 1 [facility] Department of Laboratories [place], [place] [id number] * (ABNORMAL) Differential, auto (01/19/2025 9:29 PM [...] Final Res ult IMAN RANGEL ([place]) 1 [facility] Department [place] [address] * (ABNORMAL) Pro B-type natriuretic peptide (01/19/2025 [...] LAB BLOOD ORDERABLES Final Res ult IMAN [facility] ([place]) 1 [facility] [place] [address] * (ABNORMAL) CBC with auto differential (01/19/2025 [...] NRBC abs 0.03(H) 0.00 - 0.01 K/cumm [facility] ([facility]) Blood 01/19/2025 9:29 PM CDT 01/19/2025 9:37 PM CDT us Killian Baird MD LAB BLOOD ORDERABLES Final Res ult [facility] ([place]) 1 [facility] Department [place] [address] * (ABNORMAL) Comprehensive metabolic panel (01/19/2025 9:29 PM CDT) Sodium 142 135 - 145 mmol/L [facility] ([place]) Potassium, pl 4.0 3.3 - 4.9 mmol/L [facility] ([place]) Chloride 103 97 - 110 mmol/L [facility] ([place]) CO2 20(L) 22 - 32 mmol/L [facility] ([place]) Anion gap 19(H) 2 - 15 mmol/L [facility] ([place]) BUN 20 6 - 25 mg/dL [facility] ([place]) Creatinine 1.26(H) 0.60 - 1.10 [...] Final Res ult [facility]AN RANGEL ([place]) 1 [facility] [place] [address] * CT Head WO Contrast (11/30/2024 5:19 [...] Johnathan Gonzales M.D. KT: NOLAN Report ID: [id number] Reading Location: [id number] Procedure Note Johnathan Gonzales MD - 11/30/2024 [...] Johnathan Gonzales M.D. KT: NOLAN Report ID: [id number] Reading Location: [id number] Jaspreet Sharma MD IM CT PROCEDURES Final Res ult * (ABNORMAL) Troponin T high-sensitivity 4-hour (11/30/2024 4:41 PM CDT) Trop T hs 30(H) <=14 ng/L Comment: Interpretive Data For further hscTnT resources including the diagnostic algorithm and an aid in interpretation, copy and paste this link: https://nrl.[email or web address]/show/hsTrop Current Interpretive Data last revised 2020. Trop T hs delta 1 ng/L [facility] ([place]) Trop T hs interp Insignificant [facility] ([place]) Blood 11/30/2024 4:41 PM CDT 11/30/2024 4:43 PM CDT Christian Lofton MD LAB BLOOD ORDERABLES Final R esult Performing Organization Address [facility] Co de Phone Number [facility] ([place]) 1 [facility] Department [place] [address] * ECG 12 lead (11/30/2024 3:22 PM CDT) 11/30/2024 3:22 PM CDT Narrative [facility] 12/01/2024 8:07 AM CDT Vent Rate: 68 bpm RR Interval: 876 msec [place] Interval: 149 msec QRS Duration: 101 msec QT Interval: 418 msec QTC Interval: 435 msec P-R-T [place]: 38 - -3 - 161 degrees IMPRESSION: SINUS RHYTHM POSSIBLE LEFT ATRIAL ENLARGEMENT [-0.1mV P-WAVE IN V1/V2] LEFT VENTRICULAR HYPERTROPHY AND ST-T CHANGE [VOLTAGE CRITERIA PLUS ST/T ABNORMALITY] ABNORMAL ECG No change compared to prior EKG Electronically Signed By: Reji Caballero MD [facility] Jaspreet Sharma MD ECG ORDERABLES Final Resul t Performing Organization Address [facility] Co de Phone Number [employer] [facility] * (ABNORMAL) Troponin T high-sensitivity 2-hour (11/30/2024 1:22 PM CDT) Trop T hs 30(H) <=14 ng/L Comment: Interpretive Data For further hscTnT resources including the diagnostic algorithm and an aid in interpretation, copy and paste this link: https://nrl.[email or web address] [email or web address]/show/[email or web address] Current Interpretive Data last revised 2020. Trop T hs delta 1 ng/L [facility] ([place]) Trop T hs interp Insignificant [facility] ([place]) Blood 11/30/2024 1:22 PM CDT 11/30/2024 1:28 PM CDT Christian Lofton MD LAB BLOOD ORDERABLES Final R esult [facility] ([place]) 1 [facility] Department [place] [address] * Urinalysis reflex to microscopic and culture [...] tendency for uric acid stone formation. Source: [facility] Laboratories Current Interpretive Data was last revised [...] O RDERABLES Final Result Performing Organization Address City/[facility] Co de Phone Number IMAN RANGEL ([place]) 1 [facility] [place] [address] * ECG 12 lead (11/30/2024 11:50 AM CDT) 11/30/2024 11:5 0 AM CDT Narrative [facility] - 11/30/2024 2:26 PM CDT Vent Rate: 93 bpm RR Interval: 645 msec [place] Interval: 143 msec QRS Duration: 98 msec QT Interval: 373 msec QTC Interval: 423 msec P-R-T [place]: 34 - -11 - 138 degrees IMPRESSION: SINUS RHYTHM POSSIBLE LEFT ATRIAL ENLARGEMENT [-0.1mV P-WAVE IN V1/V2] LEFT VENTRICULAR HYPERTROPHY AND ST-T CHANGE [VOLTAGE CRITERIA PLUS ST/T ABNORMALITY] ABNORMAL ECG Compared to prior EKG, lateral T-wave inversions are new Electronically Signed By: Lencho Jade MD Christian Lofton MD ECG ORDERABLES Final Result Performing Organization Address [facility] Co de Phone Number [facility] [employer] [facility] * (ABNORMAL) Troponin T high-sensitivity series (baseline, [...] ORDERABLES Final R esult Performing Organization Address City/[facility] Co de Phone Number IMAN RANGEL ([place]) 1 [facility] [place] [address] * eGFR (11/30/2024 11:50 AM CDT) eGFR [...] LAB BLOOD ORDERABLES Final R esult IMAN [facility] ([place]) 1 [facility] Department [place] [address] * (ABNORMAL) Differential, auto (11/30/2024 11:50 AM [...] Final R esult IMAN RANGEL ([place]) 1 [facility] Department [place] [address] * (ABNORMAL) CBC with auto differential (11/30/2024 [...] Final R esult [facility] ([place]) 1 [facility] Department [place] [address] * hCG, blood, quantitative (11/30/2024 11:50 AM [...] Final R esult IMAN RANGEL ([place]) 1 [facility] [place] [address] * Magnesium (11/30/2024 11:50 AM CDT) [facility] Magnesium 2.0 1.4 - 2.5 mg/dL Blood 11/30/2024 11:5 0 AM CDT 11/30/2024 11:53 AM CDT Christian Lofton MD LAB BLOOD ORDERABLES Final R replaced by [facility] Performing Organization Address City/[facility] Co de Phone Number IMAN RANGEL ([place]) 1 [place] [address] * (ABNORMAL) Comprehensive metabolic panel (11/30/2024 11:50 AM CDT) [facility] Sodium 137 135 - 145 mmol/L Potassium, pl 4.4 3.3 - 4.9 mmol/L [facility] ([place]) Chloride 103 97 - 110 mmol/L [facility] (JAVIER) CO2 19(L) 22 - 32 mmol/L [facility] (JAVIER) Anion gap 15 2 - 15 mmol/L [facility] (JAVIER) BUN 20 6 - 25 mg/dL [facility] (JAVIER) Creatinine 1.05 0.60 - 1.10 mg/dL [facility] ([place]) Glucose 85 70 - 199 mg/dL [facility] (JAVIER) Comment: Interpretive Data Fasting glucose [...] Final R esult [facility] ([place]) 1 [facility] Department [place] [address] from Last 3 Months Insurance [facility] [employer] [facility] [employer] Care Teams Sport Intern Relationship Specialty Start Date End Date No, Physician PCP - General 10/13/24
--- OUTSIDE RECORDS SUMMARY | 2025-02-24 12:57 | XMS_ITS | Clinical Summary ---
Author Organization [facility] Address [address] [place] [address] Phone Care Team Providers Care Library Media Technician Name Role Phone Oziel Corley MD Primary Care Provider [phone] Allergies Active Allergy Reactions Criticality Noted Date [...] Comments Blood Pressure 184/106 06/04/2022 2:00 PM TECHNICAL WRITING LEAD/MGR Pulse 84 06/04/2022 2:03 PM TECHNICAL WRITING LEAD/MGR Temperature 37.4 C (99.4 F) 06/04/2022 11:30 AM TECHNICAL WRITING LEAD/MGR Respiratory Rate 20 06/04/2022 11:30 AM TECHNICAL WRITING LEAD/MGR Oxygen Saturation 98% 06/04/2022 2:03 PM TECHNICAL WRITING LEAD/MGR Inhaled Oxygen Concentration - - Weight 117.9 kg (260 lb) 06/04/2022 11:30 AM TECHNICAL WRITING LEAD/MGR Height 177.8 cm (5' 10) 06/04/2022 11:30 AM TECHNICAL WRITING LEAD/MGR Body Mass Index 37.31 06/04/2022 11:30 AM TECHNICAL WRITING LEAD/MGR Plan of Treatment Health Maintenance Due Date [...] age to complete this topic Care Teams Library Media Technician Relationship Specialty Start Date End Date Oziel Corley MD [address] [facility] [facility] [address] [address] [address] [place] [address] PCP - General Family Medicine 01/19/16
[2025-02-24] MEDS: ACETAMINOPHEN 325 MG TABLET 650 MG PO (13:24)
[2025-02-24 13:54] LABS: Add Urine Microscopic? NO; Appearance Urine Clear (Clear); Glucose Urine UA Negative (Negative); Leukocyte Esterase Ur Negative LEU/UL (Negative); Nitrate Urine Negative (Negative); Specific Grav Ur <= 1.005 (1.010-1.020)
[2025-02-24] MEDS: ENALAPRILAT 2.5 MG/2 ML VIAL 1.25 MG IV PUSH (14:30)
--- NOTE | 2025-02-24 14:37 | ED_ITS ---
HPI - General Adult General Chief complaint: Unspecified Stated complaint: High Blood pressure. Time Seen by Provider: 02/24/25 11:53 Source: patient and family Mode of arrival: ambulatory Limitations: no limitations History of Present Illness HPI narrative: this is a 39-year-old female who presents with a headache and hypertension blood pressure was 219 systolic has been taking medications that was given to her by her primary recently started on Wellbutrin. Currently there is some headache with blurry vision no nausea vomiting no neck pain no neck stiffness no fever chills no chest pain or shortness of breath. Onset (ago): hour(s) Severity scale (1-10): 6 Pain Consistency: constant Related Data Allergies Allergy/AdvReac Type Severity Reaction Status Date / Time fluoxetine Allergy Unknown Rash Verified 02/24/25 11:52 Review of Systems 2 Review of Systems: All systems reviewed & are unremarkable except as noted in HPI and below PMFSH Past Medical History Medical History History of anxiety Surgical History Surgical History Hx of cholecystectomy Family History Family History Other No significant family history Social History Social History Alcohol use details: Rare social Living arrangements: with family Exam 2 Const: General: cooperative, healthy appearing, comfortable, no acute distress and well developed HENMT: Head: normal to inspection, No palpable skull fracture present, normocephalic and atraumatic Ears: hearing grossly normal bilaterally F edison/Nose/Sinus: Normal external nose present Face and sinus: normal facial exam Mouth: Yes Normal oral and palatal mucosa present Teeth and gingiva: dentition normal Eyes: General: appearance normal, both eyes and all related structures V isual Winkler: normal visual winkler by confrontation Alignment and Position: a lignment normal Neck: Neck: normal visual inspection, full ROM, no lymphadenopathy and no meningeal signs Chest: Chest palpation & inspection: normal inspection of the chest and normal palpation of entire chest wall Resp: Effort & Inspection: normal respiratory effort and able to speak in complete sentences GI: Inspection: normal to inspection : General: Yes bimanual renal exam normal bilaterally Urinary Catheter: Urinary Catheter: patent and draining Back/Spine/Pelvis: Back: no CVA tenderness Skin: General skin exam: normal color and no rashes or lesions noted Neuro: General: oriented to person, oriented to time, patient oriented x3, gait normal, tone normal, moves all extremities, Normal light touch and pain sensation, no meningeal signs, no focal motor deficits and CN's II-XI intact bilaterally Extrem: Right lower extremity: normal to inspection, full ROM and normal capillary refill Psych: Appearance: grossly normal and well kempt Course Course Emergency Course: Patient with a blood pressure of 219/108 was given hydralazine 10mg IV x2 doses and additional 1.25 of enalapril 8 and blood pressure currently 174/95 blood work performed showed no acute abnormalities EKG with normal sinus rhythm CT scan the brain performed shows no acute abnormalities, cystic lesion was noted as an incidental finding and advised follow-up with her primary for an MRI. Vital Signs Vital signs: Vital Signs Temperature 36.3 C L 02/24/25 11:52 Pulse Rate 54 L 02/24/25 11:52 Respiratory Rate 02/24/25 11:52 Blood Pressure 219/108 H 02/24/25 11:52 Pulse Oximetry 02/24/25 11:52 Oxygen Delivery Room Air 02/24/25 11:52 Temperature 36.3 C L 02/24/25 11:52 Pulse Rate 59 L 02/24/25 13:46 Respiratory Rate 02/24/25 13:46 Blood Pressure 190/101 H 02/24/25 13:46 Pulse Oximetry 02/24/25 13:46 Oxygen Delivery Room Air 02/24/25 12:31 Medical Decision Making Vital Signs Vital Signs: Vital Signs Temperature 36.3 C L 02/24/25 11:52 Pulse Rate 54 L 02/24/25 11:52 Respiratory Rate 18 02/24/25 11:52 Blood Pressure 219/108 H 02/24/25 11:52 Pulse Oximetry 02/24/25 11:52 Oxygen Delivery Room Air 02/24/25 11:52 Temperature 36.3 C L 02/24/25 11:52 Pulse Rate 59 L 02/24/25 13:46 Respiratory Rate 12 02/24/25 13:46 Blood Pressure 190/101 H 02/24/25 13:46 Pulse Oximetry 02/24/25 13:46 Oxygen Delivery Room Air 02/24/25 12:31 Lab Data 02/24/25 12:07 Labs: Lab Results 02/24/25 02/24/25 Range/Units 12:07 13:30 Sodium 145 (137-145) mmol/L Potassium 4.9 (3.4-5.0) mmol/L Chloride 107 (98-107) mmol/L Carbon Dioxide 29 (22-30) mmol/L Anion Gap 9 (4-12) mmol/L BUN 18 H (7-17) mg/dL Creatinine 1.31 H (0.7-1.0) mg/dL Estim Creat Clear Calc 63 ml/min Estimated GFR 46 L (59 - ) Glucose 84 (65-110) mg/dL Calculated Osmolality 300 H (285-295) mOsm/kg Calcium 10.1 (8.4-10.2) mg/dL Total Bilirubin 0.6 (0.2-1.3) mg/dL AST 30 (14-36) U/L ALT 26 (6-35) U/L Alkaline Phosphatase 79 (38-126) U/L Total Protein 8.3 H (6.3-8.2) g/dL Albumin 4.8 (3.5-5.1) g/dL Urine Color Light yellow (Yellow) Urine Appearance Clear (Clear) Urine pH 5.5 (5.0-8.0) Ur Specific [place] <= 1.005 L (1.010-1.020) Urine Protein Negative (Negative) Urine Glucose (UA) Negative (Negative) Urine Ketones Negative (Negative) Ur Blood (Man) Negative (Negative) Urine Nitrate Negative (Negative) Urine Bilirubin Negative (Negative) Urine Urobilinogen 0.2 (0.2-1.0) mg/dL Leukocyte Esterase Rfl Negative (Negative) NORMA/UL Critical Care Time Critical Care Time Critical Care Time: No Discharge Plan Discharge Clinical Impression: Hypertension Qualifiers: Hypertension type: unspecified Qualified Code(s): I10 - Essential (primary) hypertension Patient Disposition: Home Condition: Stable Instructions: Antibiotic Form, Hypertension (ED) Additional Instructions: advised patient to take medication as prescribed and to follow with primary care physician for MRI of the brain to evaluate cystic lesion. Follow with primary for blood pressure evaluation within the next 3 to 5 days. Patient Language: Egyptian Prescriptions: New amlodipine [Norvasc] 10 mg tablet 10 mg PO DAILY Qty: 30 0RF No Action amoxicillin 500 mg capsule 500 mg PO Q8H Qty: 30 0RF Follow-up/Referrals: Gorge,HUSSAIN Lamas [Primary Care Provider]
== END 2025-02-24 15:10 | disposition home or self-care (01) ==
PROVIDERS: Emergency Provider Emergency Medicine; PCP Physician Assistant
DX: I10 Essential (primary) hypertension (principal)
CPT/HCPCS: 36415; 70450; 80053; 81003; 93005; 96361; 96374; 96376; 99284; A9270; J0360